=== PATIENT | male | born 1980 | race Caucasian/White ===

== ENCOUNTER 2020-10-21 15:07 | Emergency (ER) | payer MEDICAID ==
[~2020-10-21] VITALS: Ht 175.3 cm; Wt 71.0 kg
[2020-10-21 16:35] LABS: BASOPHILS # (AUTO) 0.1 X10'3 (0-0.2); BASOPHILS % (AUTO) 0.8 % (0-1); EOSINOPHILS # (AUTO) 0.2 X10'3 (0-0.9); EOSINOPHILS % (AUTO) 1.9 % (0-6); HEMATOCRIT 44.4 % (42.0-52.0); HEMOGLOBIN 15.9 g/dl (14.0-17.9); LYMPHOCYTES # (AUTO) 1.7 X10'3 (1.1-4.8); MEAN CORPUSCULAR HEMOGLOBIN 32.2 PG (27.0-31.0); MEAN CORPUSCULAR HGB CONC 35.8 g/dL (33.0-36.5); MEAN CORPUSCULAR VOLUME 89.9 FL (78-98); MEAN PLATELET VOLUME 8.3 FL (7.4-10.4); MONOCYTES # (AUTO) 0.6 X10'3 (0-0.9); MONOCYTES % (AUTO) 7.4 % (2-12); NEUTROPHILS # (AUTO) 5.3 X10'3 (1.8-7.7); NEUTROPHILS % (AUTO) 67.9 % (42-75); PLATELET COUNT 202 X10'3 (140-440); RED BLOOD COUNT 4.94 X10'6 (4.70-6.10); RED CELL DISTRIBUTION WIDTH 13.8 % (11.5-14.5); WHITE BLOOD COUNT 7.8 X10'3 (4.5-11.0)
[2020-10-21 16:52] LABS: ALANINE AMINOTRANSFERASE 34 U/L (12-78); ALBUMIN 4.2 G/DL (3.4-5.0); ALBUMIN/GLOBULIN RATIO 1.3 (1.1-1.5); ALKALINE PHOSPHATASE 58 IU/L (46-116); ANION GAP 6 (8-16); ASPARTATE AMINO TRANSFERASE 30 U/L (10-37); BLOOD UREA NITROGEN 12 MG/DL (7-18); BUN/CREATININE RATIO 13.6 (5.4-32.0); CALCIUM 8.7 MG/DL (8.5-10.1); CHLORIDE 102 MMOL/L (99-107); CREATININE 0.88 MG/DL (0.60-1.10); GLUCOSE 91 MG/DL (70-104); POTASSIUM 4.3 MMOL/L (3.5-5.1); SODIUM 139 MMOL/L (135-145); TOTAL CARBON DIOXIDE 31.5 MMOL/L (24-32); TOTAL PROTEIN 7.5 G/DL (6.4-8.2); eGFR > 90 ML/MIN
[2020-10-21 17:25] LABS: ANISOCYTOSIS 1+; BURR CELLS 1+; PLATELET ESTIMATE NORMAL; POIKILOCYTOSIS 2+; SPHEROCYTES FEW
[2020-10-21 17:26] LABS: ACANTHOCYTES 2+; SCHISTOCYTES FEW
[2020-10-21] MEDS ORDERED: normal saline 1000ML IV soln IVB ONE (18:05)
[2020-10-21] MEDS ORDERED: metoclopramide 5 mg/ml inj IV ONE (18:05)
[2020-10-21] MEDS ORDERED: dexamethasone sod phosphate 10mg/ml inj IV STA (18:51)
[2020-10-21] MEDS ORDERED: famotidine/PF 10 mg/ml inj IV ONE (18:55)
[2020-10-21 19:47] VITALS: BP 123/79
== END 2020-10-21 19:39 | disposition home or self-care (01) ==
LOC: ER 15:09
DX: G43.909 Migraine, unspecified, not intractable, without status migrainosus (principal); R00.2 Palpitations; R42 Dizziness and giddiness; R53.1 Weakness
CPT/HCPCS: 36415; 70450; 71045; 80053; 83880; 84484; 85008; 85025; 93005; 96361; 96374; 96375; 99285; J1100; J2765; J3490; J7030